=== PATIENT | female | born 1965 | race Asian ===

== ENCOUNTER 2019-01-07 18:57 | Emergency (ER) | payer BC, MEDICAID ==
[~2019-01-07] VITALS: Ht 160 cm; Wt 71.2 kg
[~2019-01-07 18:57] MED LIST: GLIP10TA3 PO; METF-849 PO; METO-429 PO; OMEP10CA4 PO; RANI-270 PO; SIMV20TA2 PO
[2019-01-07 18:59] VITALS: Ht 160 cm; Wt 71.2 kg
[2019-01-07] MEDS ORDERED: ACET500C5 PO (21:26)
--- NOTE | 2019-01-07 22:04 | ERD ---
ER Documentation Chief Complaint Chief Complaint RIGHT BREAST PAIN; DOING SELF BREAST EXAM AND FELT BUMP; NO CP, NO SOB HPI 53-year-old female patient with no significant past medical history presents to ED complaining of diabetes, hypertension, hyperlipidemia presents ED complaining of right breast pain. States that she found a lump on her right breast. Reports that she did get a mammogram 1 year ago and it was normal. Describes as an achy pain and rates it an 8 out of 10. States that she takes losartan, simvastatin, metformin and Nexium and glipizide. Denies any chest pain, shortness breath, nausea, vomiting, diarrhea, neck stiffness. ROS All systems reviewed and are negative except as per history of present illness. Medications Home Meds Active Scripts Acetaminophen* (Tylophen*) 500 Mg Capsule, 1 CAP PO Q6H PRN for PAIN AND OR ELEVATED TEMP, #20 CAP Prov:JAK WELSH PA-C 01/07/19 Reported Medications Omeprazole* (Omeprazole*) 10 Mg Capsule.dr, 10 MG PO DAILY 05/30/12 Ranitidine Hcl (Zantac) 150 Mg Tablet, 150 MG PO BID 05/30/12 Metoprolol Tartrate* (Lopressor*) 50 Mg Tablet, 50 MG PO DAILY 05/30/12 Glipizide* (Glucotrol*) 10 Mg Tablet, 10 MG PO DAILY 05/30/12 Simvastatin (Simvastatin) 20 Mg Tablet, 20 MG PO HS 05/30/12 Metformin* (Glucophage*) 500 Mg Tab, 500 MG PO BID 05/30/12 Allergies Allergies: Coded Allergies: No Known Allergy (Unverified , 01/07/19) PMhx/Soc History of Surgery: Yes (TUBAL LIGATION) Anesthesia Reaction: No Hx Neurological Disorder: No Hx Respiratory Disorders: No Hx Cardiac Disorders: No Hx Psychiatric Problems: No Hx Alcohol Use: No Hx Substance Use: No Hx Tobacco Use: No FmHx Family History: No diabetes, No coronary disease Physical Exam Vitals Vital Signs Date Temp Pulse Resp B/P (MAP) Pulse Ox O2 O2 Flow FiO2 Time Delivery Rate 01/07/19 97.8 79 19 164/78 98 18:59 (106) Physical Exam Const: [id number], well-nourished. In no acute distress. Head: Atraumatic, normocephalic Eyes: Normal Conjunctiva without injection. No purulent discharge. PERRL. EOMI ENT: Normal external ear. Ear canal without erythema. Tympanic membrane pearly newsome without effusion or bulging. Nasal canal clear with normal turbinates. Moist oropharynx without tonsillar exudates. Non-erythematous pharynx. Uvula midline. No drooling. No trismus. Neck: Full range of motion. No meningismus. No cervical lymphadenopathy. Resp: Clear to auscultation bilaterally. No wheezing, rhonchi, rales, or crackles. No accessory muscle use. No retractions. Cardio: Regular rate and rhythm. No murmurs, rubs or gallops. Breast: Tender to palpation of the right superior breast with 1 cm palpated mobile mass. No erythema, edema, fluctuance or induration. Abd: Soft, non tender, non distended. Normal bowel sounds. No palpable masses. No rebound tenderness. No guarding. Skin: No petechiae or rashes Back: No midline tenderness. No CVA tenderness. Ext: No cyanosis, or edema. Neur: Awake and alert. Psych: Normal Mood and Affect Procedures/MDM 53-year-old female patient with a past medical history of diabetes, hypertension, hyperlipidemia presents ED complaining of right breast pain. Patient is afebrile and nontoxic-appearing. Patient has a blood pressure 164/78. Blood Pressure Assessment: Patient's blood pressure was elevated (>120/80) but appears stable without evidence of hypertension emergency or urgency. The patient was counseled about the risks of hypertension and urged to pursue outpatient monitoring and therapy within a week with their primary care physician. IMPRESSION: 1. Unremarkable right breast ultrasound. Right breast pain unspecified at this time. Recommended mammogram. Differential diagnosis considered include but is not limited to fibroadenoma, cyst, fibrocystic changes, malignancy. Low suspicion for mastitis, deep space infection, sepsis, cellulitis, or other emergent conditions. Diagnosis: Breast Pain Discharge medications: Tylenol Follow up with primary care physician in 1-2 days for a mammogram. Instructed patient to return to the ED sooner for any worsening symptoms. Patient's questions were answered. Patient is hemodynamically stable. Patient understood and agreed with discharge plan. Patient discharged stable. Disclaimer: Inadvertent spelling and grammatical errors are likely due to EHR/dictation software use and do not reflect on the overall quality of patient care. Also, please note that the electronic time recorded on this note does not necessarily reflect the actual time of the patient encounter. Departure Diagnosis: Primary Impression: Breast pain, right Condition: Stable Patient Instructions: Breast Self-Exam (BSE), Mammography, Breast Mass, Uncertain Cause Referrals: [facility] YOU HAVE RECEIVED A MEDICAL SCREENING EXAM AND THE RESULTS INDICATE THAT YOU DO NOT HAVE A CONDITION THAT REQUIRES URGENT TREATMENT IN THE EMERGENCY DEPARTMENT. FURTHER EVALUATION AND TREATMENT OF YOUR CONDITION CAN WAIT UNTIL YOU ARE SEEN IN YOUR DOCTORS OFFICE WITHIN THE NEXT 1-2 DAYS. IT IS YOUR RESPONSIBILITY TO MAKE AN APPOINTMENT FOR FOLOW-UP CARE. IF YOU HAVE A PRIMARY DOCTOR --you should call your primary doctor and schedule an appointment IF YOU DO NOT HAVE A PRIMARY DOCTOR YOU CAN CALL OUR PHYSICIAN REFERRAL HOTLINE AT IF YOU CAN NOT AFFORD TO SEE A PHYSICIAN YOU CAN CHOSE FROM THE FOLLOWING [facility] [address] [facility] [address] [facility] [facility] [address] [facility] [address] [facility] [address] [facility]. [facility]. [address] [facility]. [facility] YOU HAVE RECEIVED A MEDICAL SCREENING EXAM AND THE RESULTS INDICATE THAT YOU DO NOT HAVE A CONDITION THAT REQUIRES URGENT TREATMENT IN THE EMERGENCY DEPARTMENT. FURTHER EVALUATION AND TREATMENT OF YOUR CONDITION CAN WAIT UNTIL YOU ARE SEEN IN YOUR DOCTORS OFFICE WITHIN THE NEXT 1-2 DAYS. IT IS YOUR RESPONSIBILITY TO MAKE AN APPOINTMENT FOR FOLOW-UP CARE. IF YOU HAVE A PRIMARY DOCTOR --you should call your primary doctor and schedule and appointment IF YOU DO NOT HAVE A PRIMARY DOCTOR YOU CAN CALL OUR PHYSICIAN REFERRAL HOTLINE AT . IF YOU CAN NOT AFFORD TO SEE A PHYSICIAN YOU CAN CHOSE FROM THE FOLLOWING [facility] INSTITUTIONS: [facility] [address] [place] [address] [facility] [address] [place] [address] [facility] [address] [place] [address] [facility] Additional Instructions: Call your primary care doctor TOMORROW for an appointment during the next 2-3 days for a mammogram.See the doctor sooner or return here if your condition worsens before your appointment time. JAK WELSH PA-C Jan 07, 2019 22:04
== END 2019-01-07 21:32 | disposition home or self-care (01) ==
LOC: FTE 18:57
DX: N64.4 Mastodynia (principal); E11.9 Type 2 diabetes mellitus without complications; I10 Essential (primary) hypertension; Z79.84 Long term (current) use of oral hypoglycemic drugs
CPT/HCPCS: 76642